=== PATIENT | male | born 1995 | race Asian ===

== ENCOUNTER 2017-01-02 12:51 | Emergency (ER) | payer OTHER ==
[~2017-01-02] VITALS: Ht 175.3 cm; Wt 70.3 kg
[2017-01-02 12:51] VITALS: BP_SYST 110
[2017-01-02] MEDS: ONDANSETRON 4 MG ODT TAB PO ONE (13:46)
[2017-01-02 15:00] VITALS: BP_SYST 109
== END 2017-01-02 15:00 | disposition home or self-care (01) ==
LOC: SED 12:51
DX: G40.909 Epilepsy, unspecified, not intractable, without status epilepticus (principal); Z88.0 Allergy status to penicillin
CPT/HCPCS: 99283; Q0162